=== PATIENT | male | born 1975 | race Caucasian/White ===

== ENCOUNTER 2018-03-07 20:02 | Emergency (ER) | payer OTHER ==
[~2018-03-07] VITALS: Ht 182.9 cm; Wt 99.8 kg
[2018-03-07 21:05] VITALS: BP 139/80
[2018-03-07] MEDS ORDERED: BLEPH-105 ML OPHTHALMIC (21:40)
== END 2018-03-08 03:46 | disposition home or self-care (01) ==
LOC: ER 20:02
DX: S05.01XA Injury of conjunctiva and corneal abrasion without foreign body, right eye, initial encounter (principal); Z88.8 Allergy status to other drugs, medicaments and biological substances; X58.XXXA Exposure to other specified factors, initial encounter; Y93.89 Activity, other specified; Y92.89 Other specified places as the place of occurrence of the external cause; Y99.8 Other external cause status

== ENCOUNTER → 2020-03-01 | Outpatient (CLI) | payer OTHER ==
[~2020-03-01] MED LIST: BLEPH-105 ML OPHTHALMIC
[2020-03-01 10:40] LABS: ABSOLUTE NEUTROPHILS 3.2 thou/uL (1.4-8.2); BASOPHILS 1.2 % (0.0-2.0); EOSINOPHILS 5.6 % (0.0-3.0); HEMATOCRIT 49.4 % (42.0-52.0); HEMOGLOBIN 16.8 gm/dL (14.0-18.0); LYMPHOCYTES 41.5 % (24.0-44.0); MCH 30.1 pg (26.0-34.0); MCV 88.5 fL (80.0-100.0); MONOCYTES 6.7 % (1.0-8.0); PLATELET COUNT 255 thou/uL (150-400); RBC 5.58 mil/uL (4.50-6.00); RDW 13.7 % (10.5-14.5); WBC 7.2 thou/uL (4.0-11.0)
[2020-03-01 10:57] LABS: URINE BILIRUBIN NEGATIVE (Negative); URINE BLOOD NEGATIVE (Negative); URINE CLARITY CLEAR; URINE COLOR YELLOW; URINE GLUCOSE-RANDOM* NEGATIVE (Negative); URINE KETONES NEGATIVE (Negative); URINE LEUKOCYTES-REFLEX NEGATIVE (Negative); URINE NITRITE-REFLEX NEGATIVE (Negative); URINE PROTEIN (DIPSTICK) NEGATIVE (Negative); URINE SPECIFIC GRAVITY >= 1.030 (1.005-1.035); URINE UROBILINOGEN 0.2 E.U./dl (0.2-1.0)
[2020-03-01 11:00] LABS: ALBUMIN 4.1 g/dL (3.4-5.0); ANION GAP 11 mmol/L (7-16); BUN 14 mg/dL (7-18); CALCIUM 9.3 mg/dL (8.5-10.1); CHLORIDE 104 mmol/L (98-107); CHOLESTEROL 140 mg/dL (<200); CO2 28 mmol/L (21-32); CREATININE 1.3 mg/dL (0.7-1.3); GLUCOSE 156 mg/dL (74-106); HDL CHOLESTEROL 29 mg/dL (>40); LDL CHOLESTEROL 67 mg/dL (<100); POTASSIUM 4.2 mmol/L (3.5-5.1); SGOT 32 U/L (15-37); SGPT 62 U/L (30-65); SODIUM 143 mmol/L (136-145); TC:HDL 4.8 Ratio (Not establshd); TRIGLYCERIDE 220 mg/dL (<150); VLDL 44 mg/dL (<40)
[2020-03-01 21:05] LABS: PSA 0.5 ng/mL (0.0-4.0); TESTOSTERONE* 176 ng/dL (264-916)
[2020-03-02 03:06] LABS: GLYCOHEMOGLOBIN (HGB A1C) 5.6 % (4.8-5.6); HEPATITIS C VIRUS AB <0.1 (0.0-0.9)
[2020-03-04 21:05] LABS: SYPHILIS AB Non Reactive (Non Reactive)
== END ==
LOC: LAB 02-29 16:07
PROVIDERS: ATTEND Family Medicine
DX: Z00.00 Encounter for general adult medical examination without abnormal findings (principal)